=== PATIENT | male | born 1945 | race Caucasian/White ===

== ENCOUNTER 2019-11-12 11:39 | Outpatient (CLI) | payer OTHER, SELFPAY ==
[2019-11-12 12:13] LABS: Basophils % 0.5 %; Eosinophils # 0.1 10^3/uL (0.0-0.8); Hematocrit 44.1 % (42.0-52.0); Hemoglobin 13.9 g/dL (11.7-16.6); Lymphocytes # 1.4 10^3/uL (0.8-4.8); Lymphocytes % 23.3 %; Mean Corpuscular HGB Conc 31.5 g/dL (30.0-36.0); Mean Corpuscular Volume 91.9 fL (80-94); Mean Platelet Volume 10.5 fL (7.4-10.4); Monocytes # 0.3 10^3/uL (0.2-0.9); Monocytes % 4.6 %; Neutrophils # 4.3 10^3/uL (1.8-7.7); Neutrophils % 70.4 %; Nucleated Red Blood Cells % 0 %; Platelet Count 362 10^3/cmm (130-400); Red Cell Distribution Width 12.8 % (12.1-15.1)
[2019-11-12 12:27] LABS: Alanine Aminotransferase 15 U/L (0-41); Albumin Level 3.8 g/dL (3.5-5.2); Alkaline Phosphatase 84 IU/L (40-130); Anion Gap 17.4 (5-19); Aspartate Amino Transferase 21 U/L (0-40); Blood Urea Nitrogen 30 mg/dL (8-23); Calcium 9.4 mg/dL (8.5-10.5); Carbon Dioxide 27 mmol/L (22-29); Chloride 97 mmol/L (98-107); Globulin 3.6 g/dL (1.3-4.6); Glucose 324 mg/dL (65-115); Osmolality Calculated 294 mOsm/kg (285-295); Potassium 4.4 mmol/L (3.5-5.1); Sodium 137 mmol/L (136-145); Total Bilirubin 0.5 mg/dL (0.15-1.2); Total Protein 7.4 g/dL (6.6-8.7)
[2019-11-12 12:47] LABS: 25 Hydroxy Vitamin D 65 ng/mL (30-100)
[2019-11-13 14:07] LABS: Angiotensin Converting Enzyme 40 U/L (9-67)
[2019-11-18 09:40] LABS: Vit D 1,25 (Oh)2, Total 55 pg/mL (18-72); Vit D2 1,25 (Oh)2 <8 pg/mL; Vit D3 1,25 (Oh)2 55 pg/mL
== END 2019-11-12 11:40 | disposition home or self-care (01) ==
LOC: LAB 11:43
PROVIDERS: Family Provider Internal Medicine; PCP Internal Medicine; Visit Provider Internal Medicine Critical Care Medicine
DX: R93.89 Abnormal findings on diagnostic imaging of other specified body structures (principal); R06.6 Hiccough; Z79.899 Other long term (current) drug therapy
CPT/HCPCS: 80053; 82164; 82306; 82652; 85025

== ENCOUNTER 2019-12-11 07:00 | Day surgery (SDC) | payer OTHER, SELFPAY ==
[2019-12-10 12:35] VITALS: BMI 22.2
[2019-12-11] VITALS (8 sets, daily range): BP systolic 128–173; BP diastolic 58–78; PULSE 64–87; RESP 13–20; TEMP 36.1–36.6; O2SAT 90–97
[2019-12-11] MEDS: sodium chloride 0.9% 1,000 ML 30 ML IV (07:27)
[2019-12-11 07:30] LABS: Glucose Point of Care 376 mg/dL (70-110)
--- NOTE | 2019-12-11 07:32 | ANES.PREANE2 ---
Pre-Anesthetic Assessment Pre-Anesthetic Assessment: Height/Weight: Height 1.7 m Weight 64.41 kg Temp Pulse Resp BP Pulse Ox 97.9 F 64 18 173/64 95 12/11/19 07:18 12/11/19 07:18 12/11/19 07:18 12/11/19 07:18 12/11/19 07:18 Preop Diagnosis: Lung nodule Proposed Procedure: Operation Date: 12/11/19 08:20 Proposed Procedures p Bronchoscopy 69019 R59.0(Not Applicable) - Biplab MD Finn Last intake: Intake Last Liquid Date 12/10/19 Last Liquid Time 20:00 Last Solid Date 12/10/19 Last Solid Time 20:00 Social: Pack years: 30 Comment: quit 30y ago Exam: Pre-Anes Outpt Exam: alert, oriented x 3, clear to auscultation bilaterally and regular rate & rhythm Airway: Submandibular: WNL Cervical ROM: WNL MP: 1 Dentition: False Pulmonary: Comments: chronic hiccups x 3y 9started on Gabapentin) CV/HEM: CV/HEM: CAD, CHF (bilateral lower lobe nodules) and HTN Comments: s/p CABG '95ish asymptomatic in terms of CP/MALDONADO/NTG use since GI: GI: GERD Comments: well controlled with rantiidine Metabolic: Metabolic: DM Comments: rx'd x 55y, normally 75-400 Anesthetic Plan: ASA status: 3 Anesthesia: General Meds/Allergies Current Medications: Current Medications Generic Name Dose Route Start Last Admin Trade Name Freq PRN Reason Stop Dose Admin Sodium Chloride 1,000 mls @ 30 ml s/hr 12/11/19 07:00 12/11/19 07:27 Sodium Chloride 0.9% IV 12/12/19 06:59 30 mls/hr .Q24H BRANDAN Administration PFSH Anesthesia PFSH: Social History Smoking and tobacco status: former smoker Quit status (tobacco): has quit using tobacco Year quit tobacco: 1989 PPD x 35 Years Alcohol intake: never Lives independently: Yes Household members: spouse Current occupational status: disabled History of recent travel: No Current gender identity: Male Data Anesthesia Other Labs: Laboratory Results - last 48 hr 12/11/19 07:26 POC Glucose 376 Cardiac Studies: No Data to Display
--- NOTE | 2019-12-11 08:29 | W.PM.OPSUD ---
Surgery/Procedure H&P Update DATE OF PROCEDURE: December 11, 2019 This is a 74-year-old gentleman with tree-in-bud appearance on CT scan of the chest with lymphadenopathy coming in for bronchoscopy and endobronchial sound guided transbronchial needle aspiration of lymph nodes. There is no change in H&P. DATE H&P PERFORMED: 11/12/19 PREOP DIAGNOSIS: Lung nodule PLANNED PROCEDURE: Bronchoscopy with inspection of the airway, bronchoalveolar lavage, possible endobronchial and transbronchial biopsies, endobronchial sound guided transbronchial aspiration of lymph nodes. Operation Date: 12/11/19 08:20 Proposed Procedures p Bronchoscopy 24139 R59.0(Not Applicable) - Bipshubham Briseno MD
[2019-12-11] MEDS: insulin regular-human 100 units/1 mL 12 UNIT IVP (08:30)
[2019-12-11] MEDS: EPINEPHrine 1 mg/mL INJ XX (08:44)
[2019-12-11] MEDS: lidocaine 1% INJ 20 mL XX (08:45)
--- NOTE | 2019-12-11 09:40 | PM.OP ---
Operative Report Date of procedure: December 11, 2019 Pre-op Diagnosis: Lung nodule Post-op diagnosis: same Brief History: 74-year-old gentleman with tree-in-bud appearance on the CT scan and lymphadenopathy. Procedure: Name of the procedure: Bronchoscopy with inspection of the airway, bronchoalveolar lavage, endobronchial ultrasound-guided transbronchial needle aspiration of lymph nodes and control of bleeding. Indication: Tree-in-bud appearance on CT scan and hilar mediastinal lymphadenopathy Anesthesia: General anesthesia. Local anesthesia: The denisse in the right and left mainstem bronchi were anesthetized with 1% lidocaine, 3 mL. Description of the procedure: The procedure was explained to the patient and the consent was obtained. The patient was brought to the OR. The patient underwent endotracheal intubation for general anesthesia. Following induction of general anesthesia, the bronchoscope was advanced through the ET tube. The lower trachea appeared to be erythematous, no endotracheal lesion was seen. The denisse was sharp. The denisse, the right and left mainstem bronchi are anesthetized with 1% lidocaine. In a systematic manner bilateral bronchial tree was then examined. The bronchoscope was advanced into the left mainstem bronchus. There was minimal erythema and mucus. The left upper lobe, lingula and left lower lobe bronchi were examined up to the third subsegmental level and no abnormalities were identified. There is no endobronchial lesion, active bleeding or mucous plug. The bronchoscope was then introduced into the right mainstem bronchus. The right upper lobe, right middle lobe and right lower lobe bronchi were examined up to the third subsegmental level and no abnormalities were identified. There was mild airway erythema. Bronchoalveolar lavage was performed from the medial segment of the right middle lobe. 60 mL of saline was instilled, fluid return was 20 mL. The fluid was cloudy. The endobronchial ultrasound was introduced through the ET tube. Prominent mediastinal and hilar lymph nodes are identified. Transbronchial aspiration was performed from 4R, 7, 10 L, 10 R lymph node stations. Samples: 1. Bronchoalveolar lavage specimen was sent for cell count and differential, Gram stain and culture, fungal stain and culture, AFB stain and culture, and cytology. 2. The transbronchial needle aspiration of the aforementioned lymph node groups were sent for cytology. Complications: There was no immediate complications. The patient was extubated and brought to the PACU in stable condition. Follow-up: 1. Follow-up with me in 2 weeks time in the office.
[2019-12-11 10:05] LABS: Glucose Point of Care 283 mg/dL (70-110)
[2019-12-11 11:54] LABS: Apprearance, Bronch Wash Hazy (CLEAR); Color, Bronc Wash Colorless; Total Cells Counted Bronch 300
[2019-12-11 11:55] LABS: PATH Referral Yes
[2019-12-11 11:56] LABS: Bronch Source Right Middle Lobe
== END 2019-12-11 11:05 | disposition home or self-care (01) ==
PROVIDERS: Family Provider Internal Medicine; PCP Internal Medicine; Visit Provider Internal Medicine Critical Care Medicine
PROC: 0BJ08ZZ Inspection of Tracheobronchial Tree, Via Natural or Artificial Opening Endoscopic (ICD-10-PCS; CPT 31622; principal; 2019-12-11 08:10)
PROC: BB4BZZZ Ultrasonography of Pleura (ICD-10-PCS; CPT 31624; 2019-12-11 08:10)
DX: R91.8 Other nonspecific abnormal finding of lung field (principal); I25.10 Atherosclerotic heart disease of native coronary artery without angina pectoris; I11.0 Hypertensive heart disease with heart failure; I50.9 Heart failure, unspecified; Z95.1 Presence of aortocoronary bypass graft; K21.9 Gastro-esophageal reflux disease without esophagitis; F17.210 Nicotine dependence, cigarettes, uncomplicated; Z79.82 Long term (current) use of aspirin; E78.5 Hyperlipidemia, unspecified; G47.33 Obstructive sleep apnea (adult) (pediatric); E10.9 Type 1 diabetes mellitus without complications; Z79.4 Long term (current) use of insulin; R06.6 Hiccough
CPT/HCPCS: 31624; 31628; 31653; 12345; 36416; 80500; 82962; 87015; 87070; 87075; 87077; 87107; 87116; 87205; 87206; 87801; 88112; 88173; 88305; 89050; J0171; J1815; J2001; J2370; J2405; J2704; J2710; J3010; J3490; J7030

== ENCOUNTER 2020-01-04 08:55 | Outpatient (CLI) | payer OTHER, SELFPAY ==
--- NOTE | 2020-01-04 09:10 | FL_ITS ---
WS: [id number] FL barium swallow modifd [id number] REASON FOR EXAM: Other dysphagia FLUOROSCOPY TIME: 6.1 minutes FINDINGS: Fluoroscopy was performed for speech pathology please see their workup for details. There a ppeared to be some degree of microaspiration. FL/FL barium swallow modifd [id number] IMPRESSION: Microaspiration. See workup of speech pathology.
== END 2020-01-04 08:56 | disposition home or self-care (01) ==
LOC: RAD 08:58
PROVIDERS: Family Provider Internal Medicine; PCP Internal Medicine; Visit Provider Internal Medicine Critical Care Medicine
DX: T17.908A Unspecified foreign body in respiratory tract, part unspecified causing other injury, initial encounter (principal); R13.19 Other dysphagia; X58.XXXA Exposure to other specified factors, initial encounter
CPT/HCPCS: 74230; 92611

== ENCOUNTER 2020-01-26 11:06 | Outpatient (CLI) | payer OTHER, SELFPAY ==
--- NOTE | 2020-01-26 14:24 | PFTS_ITS ---
Date of Study:01/26/20 Date of Dictation: MECHANICS: Forced vital capacity (FVC) is reduced. Forced expiratory volume in one second (FEV1) is reduced. FEV1/FVC is normal. FLOW VOLUME LOOP: Reduced flow at all lung volumes with scooping. LUNG VOLUMES: Total lung capacity (TLC) is normal. Residual volume (RV) is elevated. DIFFUSING CAPACITY FOR CARBON MONOXIDE: Moderately reduced. INTERPRETATION: The pulmonary function tests are consistent with nonspecific ventilatory limitation. The spirometry is consistent with mild restriction however the patient has normal total lung capacity. There is evidence of small airways disease from scooping of the flow volume loop as well as elevated residual volume. Maximal voluntary ventilation could not be performed. Gas exchange (DLCO) is mildly reduced. MTDD
== END 2020-01-26 11:07 | disposition home or self-care (01) ==
LOC: RT 11:08
PROVIDERS: PCP Family Medicine; Visit Provider Internal Medicine Critical Care Medicine
DX: R93.89 Abnormal findings on diagnostic imaging of other specified body structures (principal)
CPT/HCPCS: 94060; 94726; 94729; J7611

== ENCOUNTER → 2020-06-01 14:52 | Outpatient (BNVA) | payer OTHER, SELFPAY | PROVIDERS: PCP Family Medicine; Visit Provider Internal Medicine | DX: E10.59 Type 1 diabetes mellitus with other circulatory complications (principal); I10 Essential (primary) hypertension; E16.0 Drug-induced hypoglycemia without coma; T38.3X5A Adverse effect of insulin and oral hypoglycemic [antidiabetic] drugs, initial encounter; E78.2 Mixed hyperlipidemia; R54 Age-related physical debility | CPT/HCPCS: 99205 ==

== ENCOUNTER → 2020-06-27 15:48 | Outpatient (BNVA) | payer OTHER, SELFPAY | PROVIDERS: PCP Family Medicine; Visit Provider Internal Medicine | DX: E10.59 Type 1 diabetes mellitus with other circulatory complications (principal); I10 Essential (primary) hypertension; E78.2 Mixed hyperlipidemia; R54 Age-related physical debility | CPT/HCPCS: 99214 ==

== ENCOUNTER → 2020-08-01 13:33 | Outpatient (BNVA) | payer OTHER, SELFPAY | PROVIDERS: PCP Family Medicine; Visit Provider Internal Medicine | DX: E10.43 Type 1 diabetes mellitus with diabetic autonomic (poly)neuropathy (principal); E10.59 Type 1 diabetes mellitus with other circulatory complications; E10.649 Type 1 diabetes mellitus with hypoglycemia without coma; E78.2 Mixed hyperlipidemia; I10 Essential (primary) hypertension; K31.84 Gastroparesis | CPT/HCPCS: 99214 ==